=== PATIENT | male | born 1975 | race Caucasian/White ===

== ENCOUNTER 2021-01-27 08:57 | Inpatient (IN) | payer OTHER, MEDICAID ==
[~2021-01-27] VITALS: Ht 175.3 cm; Wt 94.6 kg
[2021-01-27] MEDS ORDERED: BACITRACIN 0.9 GM PACKET OINTMENT TP ONE (09:15)
[2021-01-27] MEDS ORDERED: PERTUSS(ACELL),DIPH,TET VAC/PF 0.5 ML SYRINGE IM ONE (09:15)
[2021-01-27] MEDS ORDERED: BUSP15 PO (09:21)
[2021-01-27] MEDS ORDERED: FLUO-191 PO (09:21)
[2021-01-27] MEDS ORDERED: DIVA-112 PO (09:21)
[2021-01-27] MEDS ORDERED: DiphenhydrAMINE HCL 50 MG/ML VIAL IM ONE (10:15)
[2021-01-27] MEDS ORDERED: HALOPERIDOL LACTATE 5 MG/ML VIAL IM ONE (10:15)
[2021-01-27] MEDS ORDERED: LORazepam 2 MG/ML VIAL IM ONE (10:15)
[2021-01-27 10:32] LABS: COVID AG,FIA SOURCE NASOPHARYNGEAL
[2021-01-27 10:59] LABS: AMPHET/METH SCREEN,URINE NEGATIVE (NEGATIVE); BARBITURATE SCREEN, URINE NEGATIVE (NEGATIVE); BENZODIAZEPINES SCREEN,URINE NEGATIVE (NEGATIVE); CANNABINOID SCREEN,URINE POSITIVE (NEGATIVE); COCAINE SCREEN,URINE NEGATIVE (NEGATIVE); METHADONE SCREEN, URINE NEGATIVE (NEGATIVE); OPIATE SCREEN,URINE NEGATIVE (NEGATIVE)
[2021-01-27 11:00] LABS: PHENCYCLIDINE SCREEN,URINE NEGATIVE (NEGATIVE)
[2021-01-27] MEDS ORDERED: PROMETHAZINE HCL 25 MG TABLET PO PRN (11:00)
[2021-01-27] MEDS ORDERED: OLANZapine 5 MG RAPDIS TABLET PO PRN (11:00)
[2021-01-27] MEDS ORDERED: MAGNESIUM HYDROXIDE SUSPENSION 30 ML UDCUP PO PRN (11:00)
[2021-01-27] MEDS ORDERED: ZOLPIDEM TARTRATE 10 MG TABLET PO PRN (11:00)
[2021-01-27] MEDS ORDERED: TUBERCULIN, PURIFIED PROTEIN DERIVATIVE 5 TU/0.1 ML SYRINGE ID ONE (11:00)
[2021-01-27] MEDS ORDERED: MAG HYDROX/AL HYDROX/SIMETH ES 30 ML SUSPENSION UDCUP PO PRN (11:00)
[2021-01-27] MEDS ORDERED: GuaiFENesin/D-METHORPHAN [SUGAR-FREE] 200-20MG/10 ML SYRUP UDCUP PO PRN (11:00)
[2021-01-27] MEDS ORDERED: LOPERAMIDE HCL 2 MG CAPSULE PO PRN (11:00)
[2021-01-27 11:32] LABS: BASOPHILS % (AUTO) 0.6 % (0.0-2.0); EOSINOPHILS % (AUTO) 0.3 % (1.0-6.0); HEMATOCRIT 44.8 % (41-53); HEMOGLOBIN 15.4 g/dL (13.5-17.5); LYMPHOCYTES # (AUTO) 1.9 K/uL (1.0-4.8); LYMPHOCYTES % (AUTO) 13.3 % (22.0-44.0); MEAN CORPUSCULAR HEMOGLOBIN 31.4 pg (26.0-34.0); MEAN CORPUSCULAR HGB CONC 34.3 G/dL (31.0-37.0); MEAN CORPUSCULAR VOLUME 91 fL (80-100); MONOCYTES # (AUTO) 1.2 K/uL (0.1-1.0); MONOCYTES % (AUTO) 8.6 % (2.0-9.0); NEUTROPHILS # (AUTO) 11.1 K/uL (1.8-7.7); NEUTROPHILS % (AUTO) 77.2 % (40.0-70.0); PLATELET COUNT (AUTO) 336 K/uL (150-450); RED CELL DISTRIBUTION WIDTH 13.8 % (11.5-14.5)
[2021-01-27 11:44] LABS: ANION GAP 9 mmol/L (8-16); CALCIUM, TOTAL 9.3 mg/dL (8.8-10.5); CARBON DIOXIDE 28 mmol/L (22-29); CHLORIDE 102 mmol/L (98-107); CREATININE 0.86 mg/dL (0.60-1.30); GLOMERULAR FILTR. RATE CALC > 60 mL/min (>60); GLUCOSE,RANDOM 114 mg/dL (70-110); POTASSIUM 4.5 mmol/L (3.5-5.1); SODIUM SERUM 139 mmol/L (136-145); UREA NITROGEN, BLOOD 14 mg/dL (7-18)
[2021-01-27 11:49] LABS: ALANINE AMINOTRANSFERASE 25 U/L (12-78); ALBUMIN 4.1 g/dL (3.4-5.0); ALKALINE PHOSPHATASE 83 U/L (46-116); ASPARTATE AMINOTRANSFERASE 25 U/L (15-37); BILIRUBIN,TOTAL 0.3 mg/dL (0.1-1.0); TOTAL PROTEIN, SERUM 7.6 g/dL (6.4-8.2)
[2021-01-27] MEDS: LORazepam 2 MG TABLET PO PRN (14:22)
[2021-01-27] MEDS: THIAMINE 100 MG TABLET PO SCH (17:35)
[2021-01-27 17:44] VITALS: BP 155/91
[2021-01-27] MEDS: DIVALPROEX SODIUM 500 MG ER TABLET PO SCH (20:32)
[2021-01-27] MEDS: MELATONIN 5 MG TABLET PO SCH (20:32)
[2021-01-27] MEDS ORDERED: OLANZapine 5 MG RAPDIS TABLET PO SCH (21:00)
[2021-01-28 07:24] LABS: HEMOGLOBIN A1C 5.8 % (3.8-5.6)
[2021-01-28 07:36] LABS: CHOL/HDL RATIO 5.8 (4.2-7.3)
[2021-01-28 08:00] VITALS: BP 165/99
[2021-01-28 08:54] LABS: FREE T4 (FREE THYROXINE) 1.16 ng/dL (0.76-1.46); THYROID STIMULATING HORMONE 3.29 uIU/mL (0.36-3.74)
[2021-01-28] MEDS ORDERED: NALTREXONE HCL 50 MG TABLET PO SCH (09:00)
[2021-01-28] MEDS: HydrOXYzine PAMOATE 50 MG CAPSULE PO PRN (10:22)
[2021-01-28] MEDS: THIAMINE 100 MG TABLET PO SCH ×2 (10:22→17:11)
[2021-01-28] MEDS: OMEGA-3/DHA/EPA/FISH OIL 1,000 MG CAPSULE PO SCH (10:22)
[2021-01-28] MEDS: FOLIC ACID 1 MG TABLET PO SCH (10:22)
[2021-01-28] MEDS: MULTIVITAMINS WITH MINERALS, THERAPEUTIC TABLET PO SCH (10:22)
[2021-01-28 16:49] VITALS: BP 140/92
[2021-01-28] MEDS: LORazepam 2 MG TABLET PO PRN (17:15)
[2021-01-28] MEDS: MELATONIN 5 MG TABLET PO SCH (21:11)
[2021-01-28] MEDS: DIVALPROEX SODIUM 500 MG ER TABLET PO SCH (21:11)
[2021-01-29 05:54] LABS: BASOPHILS % (AUTO) 0.7 % (0.0-2.0); EOSINOPHILS % (AUTO) 2.4 % (1.0-6.0); HEMATOCRIT 48.8 % (41-53); HEMOGLOBIN 16.5 g/dL (13.5-17.5); LYMPHOCYTES # (AUTO) 6.3 K/uL (1.0-4.8); LYMPHOCYTES % (AUTO) 33.8 % (22.0-44.0); MEAN CORPUSCULAR HEMOGLOBIN 31.2 pg (26.0-34.0); MEAN CORPUSCULAR HGB CONC 33.9 G/dL (31.0-37.0); MEAN CORPUSCULAR VOLUME 92 fL (80-100); MONOCYTES # (AUTO) 1.7 K/uL (0.1-1.0); MONOCYTES % (AUTO) 9.2 % (2.0-9.0); NEUTROPHILS # (AUTO) 10.1 K/uL (1.8-7.7); NEUTROPHILS % (AUTO) 53.9 % (40.0-70.0); PLATELET COUNT (AUTO) 373 K/uL (150-450); RED BLOOD CELL COUNT(AUTO) 5.29 MIL/uL (4.50-5.90); RED CELL DISTRIBUTION WIDTH 14.2 % (11.5-14.5)
[2021-01-29] MEDS ORDERED: LURASIDONE HCL 40 MG TABLET PO SCH (07:30)
[2021-01-29 08:00] VITALS: BP 136/83
[2021-01-29] MEDS ORDERED: BusPIRone HCL 10 MG TABLET PO SCH (09:00)
[2021-01-29] MEDS: MULTIVITAMINS WITH MINERALS, THERAPEUTIC TABLET PO SCH (09:12)
[2021-01-29] MEDS: FOLIC ACID 1 MG TABLET PO SCH (09:12)
[2021-01-29] MEDS: OMEGA-3/DHA/EPA/FISH OIL 1,000 MG CAPSULE PO SCH (09:13)
[2021-01-29] MEDS: THIAMINE 100 MG TABLET PO SCH ×2 (09:13→16:20)
[2021-01-29] MEDS: HydrOXYzine PAMOATE 50 MG CAPSULE PO PRN (09:15)
[2021-01-29] MEDS: FLUoxetine HCL 20 MG CAPSULE PO SCH (09:16)
[2021-01-29] MEDS: BusPIRone HCL 15 MG TABLET PO SCH ×2 (09:17→16:19)
[2021-01-29 16:28] VITALS: BP 147/95
[2021-01-29] MEDS ORDERED: DIVA-80 PO (18:57)
[2021-01-29] MEDS ORDERED: FLUO-191 PO (18:57)
[2021-01-29] MEDS ORDERED: BUSP15 PO (18:57)
[2021-01-29] MEDS ORDERED: LURA40TA2 PO (18:57)
[2021-01-29] MEDS ORDERED: NALT50TA PO (18:57)
[2021-01-29] MEDS ORDERED: OMEG-135 PO (18:57)
[2021-01-29] MEDS: DIVALPROEX SODIUM 500 MG ER TABLET PO SCH (20:31)
[2021-01-29] MEDS: MELATONIN 5 MG TABLET PO SCH (20:31)
[2021-01-30 04:22] VITALS: BP 160/89
[2021-01-30] MEDS: LURASIDONE HCL 60 MG TABLET PO SCH (06:56)
[2021-01-30] MEDS: MULTIVITAMINS WITH MINERALS, THERAPEUTIC TABLET PO SCH (08:07)
[2021-01-30] MEDS: OMEGA-3/DHA/EPA/FISH OIL 1,000 MG CAPSULE PO SCH (08:07)
[2021-01-30] MEDS: THIAMINE 100 MG TABLET PO SCH ×2 (08:07→16:34)
[2021-01-30] MEDS: HydrOXYzine PAMOATE 50 MG CAPSULE PO PRN (08:07)
[2021-01-30] MEDS: BusPIRone HCL 15 MG TABLET PO SCH ×2 (08:07→16:34)
[2021-01-30] MEDS: FLUoxetine HCL 20 MG CAPSULE PO SCH (08:07)
[2021-01-30] MEDS: FOLIC ACID 1 MG TABLET PO SCH (08:07)
[2021-01-30] MEDS: NALTREXONE HCL 50 MG TABLET PO SCH (08:08)
[2021-01-30 08:47] VITALS: BP 126/85
[2021-01-30 16:13] VITALS: BP 139/73
[2021-01-30] MEDS: ACETAMINOPHEN 325 MG TABLET PO PRN (19:34)
[2021-01-30 19:35] VITALS: BP 134/75
[2021-01-30] MEDS: DIVALPROEX SODIUM 500 MG ER TABLET PO SCH (20:13)
[2021-01-30] MEDS: MELATONIN 5 MG TABLET PO SCH (20:13)
[2021-01-30 20:35] VITALS: BP 130/80
[2021-01-31 00:27] VITALS: BP 136/71
[2021-01-31] MEDS: ACETAMINOPHEN 325 MG TABLET PO PRN (00:27)
[2021-01-31] MEDS: LURASIDONE HCL 60 MG TABLET PO SCH (07:30)
[2021-01-31 08:40] VITALS: BP 145/93
[2021-01-31] MEDS: OMEGA-3/DHA/EPA/FISH OIL 1,000 MG CAPSULE PO SCH (09:06)
[2021-01-31] MEDS: FLUoxetine HCL 20 MG CAPSULE PO SCH (09:06)
[2021-01-31] MEDS: NALTREXONE HCL 50 MG TABLET PO SCH (09:06)
[2021-01-31] MEDS: MULTIVITAMINS WITH MINERALS, THERAPEUTIC TABLET PO SCH (09:06)
[2021-01-31] MEDS: FOLIC ACID 1 MG TABLET PO SCH (09:07)
[2021-01-31] MEDS: THIAMINE 100 MG TABLET PO SCH ×2 (09:07→16:32)
[2021-01-31] MEDS: BusPIRone HCL 15 MG TABLET PO SCH ×2 (09:07→16:32)
[2021-01-31] MEDS: LURASIDONE HCL 20 MG TABLET PO PRN (09:07)
[2021-01-31 16:13] VITALS: BP 148/98
[2021-01-31] MEDS: MELATONIN 5 MG TABLET PO SCH (20:16)
[2021-01-31] MEDS: DIVALPROEX SODIUM 500 MG ER TABLET PO SCH (20:16)
[2021-02-01 01:38] VITALS: BP 135/73
[2021-02-01] MEDS: ACETAMINOPHEN 325 MG TABLET PO PRN ×2 (01:38→17:55)
[2021-02-01] MEDS: LURASIDONE HCL 60 MG TABLET PO SCH (06:46)
[2021-02-01 08:00] VITALS: BP 130/90
[2021-02-01] MEDS: THIAMINE 100 MG TABLET PO SCH ×2 (08:43→16:33)
[2021-02-01] MEDS: OMEGA-3/DHA/EPA/FISH OIL 1,000 MG CAPSULE PO SCH (08:44)
[2021-02-01] MEDS: MULTIVITAMINS WITH MINERALS, THERAPEUTIC TABLET PO SCH (08:44)
[2021-02-01] MEDS: FOLIC ACID 1 MG TABLET PO SCH (08:44)
[2021-02-01] MEDS: BusPIRone HCL 15 MG TABLET PO SCH ×2 (08:44→16:33)
[2021-02-01] MEDS: NALTREXONE HCL 50 MG TABLET PO SCH (08:44)
[2021-02-01] MEDS: FLUoxetine HCL 20 MG CAPSULE PO SCH (08:44)
[2021-02-01 14:58] LABS: COVID AG,FIA SOURCE NASOPHARYNGEAL
[2021-02-01 16:00] VITALS: BP 133/89
[2021-02-01 17:50] VITALS: BP 141/95
[2021-02-01] MEDS: DIVALPROEX SODIUM 500 MG ER TABLET PO SCH (20:08)
[2021-02-01] MEDS: MELATONIN 5 MG TABLET PO SCH (20:08)
[2021-02-02] MEDS: LURASIDONE HCL 80 MG TABLET PO SCH (06:41)
[2021-02-02 08:00] VITALS: BP 149/89
[2021-02-02] MEDS: BusPIRone HCL 15 MG TABLET PO SCH ×2 (08:19→16:43)
[2021-02-02] MEDS: FLUoxetine HCL 20 MG CAPSULE PO SCH (08:19)
[2021-02-02] MEDS: FOLIC ACID 1 MG TABLET PO SCH (08:19)
[2021-02-02] MEDS: OMEGA-3/DHA/EPA/FISH OIL 1,000 MG CAPSULE PO SCH (08:20)
[2021-02-02] MEDS: MULTIVITAMINS WITH MINERALS, THERAPEUTIC TABLET PO SCH (08:20)
[2021-02-02] MEDS: THIAMINE 100 MG TABLET PO SCH ×2 (08:20→16:42)
[2021-02-02] MEDS: NALTREXONE HCL 50 MG TABLET PO SCH (08:23)
[2021-02-02] MEDS: BACITRACIN 28 GM OINTMENT TP SCH (13:13)
[2021-02-02 16:00] VITALS: BP 127/83
[2021-02-02] MEDS: MELATONIN 5 MG TABLET PO SCH (21:42)
[2021-02-02] MEDS: DIVALPROEX SODIUM 500 MG ER TABLET PO SCH (21:42)
[2021-02-03] MEDS: LURASIDONE HCL 80 MG TABLET PO SCH (07:04)
[2021-02-03 08:41] VITALS: BP 151/100
[2021-02-03] MEDS: THIAMINE 100 MG TABLET PO SCH ×2 (09:48→16:13)
[2021-02-03] MEDS: BusPIRone HCL 15 MG TABLET PO SCH ×2 (09:48→16:13)
[2021-02-03] MEDS: FOLIC ACID 1 MG TABLET PO SCH (09:48)
[2021-02-03] MEDS: NICOTINE 14 MG/24 HOUR PATCH TD PRN (09:48)
[2021-02-03] MEDS: MULTIVITAMINS WITH MINERALS, THERAPEUTIC TABLET PO SCH (09:48)
[2021-02-03] MEDS: OMEGA-3/DHA/EPA/FISH OIL 1,000 MG CAPSULE PO SCH (09:48)
[2021-02-03] MEDS: FLUoxetine HCL 20 MG CAPSULE PO SCH (09:49)
[2021-02-03] MEDS: NALTREXONE HCL 50 MG TABLET PO SCH (09:49)
[2021-02-03] MEDS: BACITRACIN 28 GM OINTMENT TP SCH (09:50)
[2021-02-03 16:27] VITALS: BP 150/97
[2021-02-03] MEDS: DIVALPROEX SODIUM 500 MG ER TABLET PO SCH (20:32)
[2021-02-03] MEDS: MELATONIN 5 MG TABLET PO SCH (20:32)
[2021-02-04 01:06] VITALS: BP 144/94
[2021-02-04] MEDS: LURASIDONE HCL 80 MG TABLET PO SCH (07:01)
[2021-02-04] MEDS: MULTIVITAMINS WITH MINERALS, THERAPEUTIC TABLET PO SCH (07:59)
[2021-02-04 08:00] VITALS: BP 153/85
[2021-02-04] MEDS: THIAMINE 100 MG TABLET PO SCH ×2 (08:00→16:23)
[2021-02-04] MEDS: FLUoxetine HCL 20 MG CAPSULE PO SCH (08:00)
[2021-02-04] MEDS: NALTREXONE HCL 50 MG TABLET PO SCH (08:00)
[2021-02-04] MEDS: OMEGA-3/DHA/EPA/FISH OIL 1,000 MG CAPSULE PO SCH (08:00)
[2021-02-04] MEDS: FOLIC ACID 1 MG TABLET PO SCH (08:00)
[2021-02-04] MEDS: BusPIRone HCL 15 MG TABLET PO SCH ×2 (08:00→16:23)
[2021-02-04] MEDS: NICOTINE 14 MG/24 HOUR PATCH TD PRN (08:01)
[2021-02-04] MEDS: BACITRACIN 28 GM OINTMENT TP SCH (08:01)
[2021-02-04 16:44] VITALS: BP 143/95
[2021-02-04] MEDS: DIVALPROEX SODIUM 500 MG ER TABLET PO SCH (20:46)
[2021-02-04] MEDS: MELATONIN 5 MG TABLET PO SCH (20:46)
[2021-02-05] MEDS: LURASIDONE HCL 80 MG TABLET PO SCH (06:50)
[2021-02-05 08:00] VITALS: BP 133/89
[2021-02-05] MEDS: FOLIC ACID 1 MG TABLET PO SCH (08:01)
[2021-02-05] MEDS: BusPIRone HCL 15 MG TABLET PO SCH ×2 (08:01→16:10)
[2021-02-05] MEDS: FLUoxetine HCL 20 MG CAPSULE PO SCH (08:01)
[2021-02-05] MEDS: THIAMINE 100 MG TABLET PO SCH ×2 (08:01→16:10)
[2021-02-05] MEDS: MULTIVITAMINS WITH MINERALS, THERAPEUTIC TABLET PO SCH (08:01)
[2021-02-05] MEDS: OMEGA-3/DHA/EPA/FISH OIL 1,000 MG CAPSULE PO SCH (08:01)
[2021-02-05] MEDS: NALTREXONE HCL 50 MG TABLET PO SCH (09:00)
[2021-02-05] MEDS: NICOTINE 14 MG/24 HOUR PATCH TD PRN (11:39)
[2021-02-05] MEDS: BACITRACIN 28 GM OINTMENT TP SCH (11:39)
[2021-02-05 16:18] VITALS: BP 134/81
[2021-02-05] MEDS: MELATONIN 5 MG TABLET PO SCH (20:35)
[2021-02-05] MEDS: DIVALPROEX SODIUM 500 MG ER TABLET PO SCH (20:35)
[2021-02-06] MEDS: ACETAMINOPHEN 325 MG TABLET PO PRN ×2 (02:05→17:47)
[2021-02-06 02:09] VITALS: BP 129/91
[2021-02-06] MEDS: LURASIDONE HCL 80 MG TABLET PO SCH (06:50)
[2021-02-06] MEDS: MULTIVITAMINS WITH MINERALS, THERAPEUTIC TABLET PO SCH (07:58)
[2021-02-06] MEDS: FLUoxetine HCL 20 MG CAPSULE PO SCH (07:58)
[2021-02-06] MEDS: BusPIRone HCL 15 MG TABLET PO SCH ×2 (07:58→16:32)
[2021-02-06] MEDS: THIAMINE 100 MG TABLET PO SCH (07:58)
[2021-02-06] MEDS: OMEGA-3/DHA/EPA/FISH OIL 1,000 MG CAPSULE PO SCH (07:58)
[2021-02-06] MEDS: FOLIC ACID 1 MG TABLET PO SCH (07:58)
[2021-02-06] MEDS: NICOTINE 14 MG/24 HOUR PATCH TD PRN (07:59)
[2021-02-06 08:00] VITALS: BP 137/91
[2021-02-06 08:01] LABS: APPEARANCE,URINE CLEAR (CLEAR); BILIRUBIN,URINE NEGATIVE (NEGATIVE); GLUCOSE, URINE (UA) NEGATIVE (NEGATIVE); KETONES,URINE TRACE mg/dL (NEGATIVE); LEUKOCYTE ESTERASE ,URINE NEGATIVE (NEGATIVE); NITRATE,URINE NEGATIVE (NEGATIVE); OCCULT BLOOD,URINE NEGATIVE (NEGATIVE); PH,URINE 6.5 (5.0-8.0); PROTEIN,URINE NEGATIVE (NEGATIVE); UROBILINOGEN,URINE 0.2 mg/dL (<=1.0)
[2021-02-06] MEDS: NALTREXONE HCL 50 MG TABLET PO SCH (09:00)
[2021-02-06] MEDS: BACITRACIN 28 GM OINTMENT TP SCH (09:00)
[2021-02-06] MEDS: CEPHALEXIN MONOHYDRATE 500 MG CAPSULE PO SCH ×3 (13:13→20:18)
[2021-02-06 16:34] VITALS: BP 123/83
[2021-02-06 18:48] VITALS: BP 129/89
[2021-02-06] MEDS: MELATONIN 5 MG TABLET PO SCH (20:18)
[2021-02-06] MEDS: DIVALPROEX SODIUM 500 MG ER TABLET PO SCH (20:18)
[2021-02-07 05:55] LABS: BASOPHILS % (AUTO) 0.8 % (0.0-2.0); EOSINOPHILS % (AUTO) 2.9 % (1.0-6.0); HEMATOCRIT 42.1 % (41-53); HEMOGLOBIN 14.6 g/dL (13.5-17.5); LYMPHOCYTES # (AUTO) 5.3 K/uL (1.0-4.8); LYMPHOCYTES % (AUTO) 38.5 % (22.0-44.0); MEAN CORPUSCULAR HEMOGLOBIN 31.4 pg (26.0-34.0); MEAN CORPUSCULAR HGB CONC 34.6 G/dL (31.0-37.0); MEAN CORPUSCULAR VOLUME 91 fL (80-100); MONOCYTES # (AUTO) 1.1 K/uL (0.1-1.0); NEUTROPHILS # (AUTO) 6.8 K/uL (1.8-7.7); NEUTROPHILS % (AUTO) 49.8 % (40.0-70.0); PLATELET COUNT (AUTO) 324 K/uL (150-450); RED BLOOD CELL COUNT(AUTO) 4.64 MIL/uL (4.50-5.90); RED CELL DISTRIBUTION WIDTH 13.7 % (11.5-14.5)
[2021-02-07] MEDS: LURASIDONE HCL 80 MG TABLET PO SCH (06:58)
[2021-02-07 08:00] VITALS: BP 139/85
[2021-02-07] MEDS: CEPHALEXIN MONOHYDRATE 500 MG CAPSULE PO SCH ×4 (08:17→20:17)
[2021-02-07] MEDS: BusPIRone HCL 15 MG TABLET PO SCH ×2 (08:17→15:27)
[2021-02-07] MEDS: OMEGA-3/DHA/EPA/FISH OIL 1,000 MG CAPSULE PO SCH (08:17)
[2021-02-07] MEDS: NALTREXONE HCL 50 MG TABLET PO SCH (08:17)
[2021-02-07] MEDS: MULTIVITAMINS WITH MINERALS, THERAPEUTIC TABLET PO SCH (08:17)
[2021-02-07] MEDS: FLUoxetine HCL 20 MG CAPSULE PO SCH (08:17)
[2021-02-07] MEDS: BACITRACIN 28 GM OINTMENT TP SCH (09:00)
[2021-02-07] MEDS: NICOTINE 14 MG/24 HOUR PATCH TD PRN (15:26)
[2021-02-07] MEDS: LURASIDONE HCL 20 MG TABLET PO PRN (15:26)
[2021-02-07 16:05] VITALS: BP 136/72
[2021-02-07] MEDS: DIVALPROEX SODIUM 500 MG ER TABLET PO SCH (20:16)
[2021-02-07] MEDS: MELATONIN 5 MG TABLET PO SCH (20:16)
[2021-02-08] MEDS: LURASIDONE HCL 80 MG TABLET PO SCH (06:34)
[2021-02-08] MEDS: MULTIVITAMINS WITH MINERALS, THERAPEUTIC TABLET PO SCH (08:40)
[2021-02-08] MEDS: OMEGA-3/DHA/EPA/FISH OIL 1,000 MG CAPSULE PO SCH (08:40)
[2021-02-08] MEDS: FLUoxetine HCL 20 MG CAPSULE PO SCH (08:42)
[2021-02-08] MEDS: BusPIRone HCL 15 MG TABLET PO SCH ×2 (08:43→16:23)
[2021-02-08] MEDS: BACITRACIN 28 GM OINTMENT TP SCH (08:43)
[2021-02-08] MEDS: NALTREXONE HCL 50 MG TABLET PO SCH (08:43)
[2021-02-08] MEDS: CEPHALEXIN MONOHYDRATE 500 MG CAPSULE PO SCH ×4 (08:43→20:13)
[2021-02-08 09:28] VITALS: BP 127/84
[2021-02-08 14:50] LABS: COVID AG,FIA SOURCE NASOPHARYNGEAL
[2021-02-08 16:25] VITALS: BP 146/86
[2021-02-08] MEDS: MELATONIN 5 MG TABLET PO SCH (20:13)
[2021-02-08] MEDS: DIVALPROEX SODIUM 500 MG ER TABLET PO SCH (20:13)
[2021-02-09] MEDS: LURASIDONE HCL 80 MG TABLET PO SCH (06:37)
[2021-02-09 08:32] VITALS: BP 124/88
[2021-02-09] MEDS: CEPHALEXIN MONOHYDRATE 500 MG CAPSULE PO SCH (09:03)
[2021-02-09] MEDS: ACETAMINOPHEN 325 MG TABLET PO PRN (09:03)
[2021-02-09] MEDS: BACITRACIN 28 GM OINTMENT TP SCH (09:03)
[2021-02-09] MEDS: MULTIVITAMINS WITH MINERALS, THERAPEUTIC TABLET PO SCH (09:03)
[2021-02-09] MEDS: NALTREXONE HCL 50 MG TABLET PO SCH (09:03)
[2021-02-09] MEDS: BusPIRone HCL 15 MG TABLET PO SCH ×2 (09:03→16:23)
[2021-02-09] MEDS: OMEGA-3/DHA/EPA/FISH OIL 1,000 MG CAPSULE PO SCH (09:03)
[2021-02-09] MEDS: FLUoxetine HCL 20 MG CAPSULE PO SCH (09:03)
[2021-02-09 16:00] VITALS: BP 120/85
[2021-02-09] MEDS: NICOTINE 14 MG/24 HOUR PATCH TD PRN (17:46)
[2021-02-09] MEDS: DIVALPROEX SODIUM 500 MG ER TABLET PO SCH (20:33)
[2021-02-09] MEDS: MELATONIN 5 MG TABLET PO SCH (21:10)
[2021-02-10] MEDS: ACETAMINOPHEN 325 MG TABLET PO PRN (02:54)
[2021-02-10 02:55] VITALS: BP 120/81
[2021-02-10 05:48] LABS: BASOPHILS % (AUTO) 0.9 % (0.0-2.0); EOSINOPHILS % (AUTO) 2.3 % (1.0-6.0); HEMATOCRIT 43.3 % (41-53); HEMOGLOBIN 14.8 g/dL (13.5-17.5); LYMPHOCYTES # (AUTO) 4.8 K/uL (1.0-4.8); MEAN CORPUSCULAR HEMOGLOBIN 31.3 pg (26.0-34.0); MEAN CORPUSCULAR HGB CONC 34.1 G/dL (31.0-37.0); MEAN CORPUSCULAR VOLUME 92 fL (80-100); MONOCYTES % (AUTO) 8.3 % (2.0-9.0); NEUTROPHILS # (AUTO) 5.8 K/uL (1.8-7.7); NEUTROPHILS % (AUTO) 48.5 % (40.0-70.0); PLATELET COUNT (AUTO) 323 K/uL (150-450); RED BLOOD CELL COUNT(AUTO) 4.72 MIL/uL (4.50-5.90); RED CELL DISTRIBUTION WIDTH 13.4 % (11.5-14.5)
[2021-02-10] MEDS: LURASIDONE HCL 80 MG TABLET PO SCH (06:36)
[2021-02-10] MEDS: OMEGA-3/DHA/EPA/FISH OIL 1,000 MG CAPSULE PO SCH (08:08)
[2021-02-10] MEDS: BACITRACIN 28 GM OINTMENT TP SCH (08:09)
[2021-02-10] MEDS: MULTIVITAMINS WITH MINERALS, THERAPEUTIC TABLET PO SCH (08:09)
[2021-02-10] MEDS: NALTREXONE HCL 50 MG TABLET PO SCH (08:09)
[2021-02-10] MEDS: FLUoxetine HCL 20 MG CAPSULE PO SCH (08:09)
[2021-02-10] MEDS: BusPIRone HCL 15 MG TABLET PO SCH ×2 (08:09→16:04)
[2021-02-10] MEDS ORDERED: LURA80TA2 PO (09:18)
[2021-02-10] MEDS ORDERED: MELA5TAB3 PO (09:18)
[2021-02-10] MEDS ORDERED: NALT50TA PO (09:18)
[2021-02-10] MEDS ORDERED: DIVA-80 PO (09:18)
[2021-02-10 10:33] VITALS: BP 127/91
[2021-02-10 16:09] VITALS: BP 128/83
[2021-02-10] MEDS: NICOTINE 14 MG/24 HOUR PATCH TD PRN (17:35)
[2021-02-10] MEDS: MELATONIN 5 MG TABLET PO SCH (20:41)
[2021-02-10] MEDS: DIVALPROEX SODIUM 500 MG ER TABLET PO SCH (20:41)
[2021-02-11] MEDS: LURASIDONE HCL 80 MG TABLET PO SCH (07:03)
[2021-02-11 08:00] VITALS: BP 116/72
[2021-02-11] MEDS: MULTIVITAMINS WITH MINERALS, THERAPEUTIC TABLET PO SCH (10:56)
[2021-02-11] MEDS: BACITRACIN 28 GM OINTMENT TP SCH (10:56)
[2021-02-11] MEDS: BusPIRone HCL 15 MG TABLET PO SCH ×2 (10:56→17:03)
[2021-02-11] MEDS: OMEGA-3/DHA/EPA/FISH OIL 1,000 MG CAPSULE PO SCH (10:56)
[2021-02-11] MEDS: FLUoxetine HCL 20 MG CAPSULE PO SCH (10:56)
[2021-02-11] MEDS: NALTREXONE HCL 50 MG TABLET PO SCH (10:56)
[2021-02-11 16:29] VITALS: BP 128/84
[2021-02-11] MEDS: NICOTINE 14 MG/24 HOUR PATCH TD PRN (18:08)
[2021-02-11] MEDS: MELATONIN 5 MG TABLET PO SCH (20:14)
[2021-02-11] MEDS: DIVALPROEX SODIUM 500 MG ER TABLET PO SCH (20:14)
[2021-02-12] MEDS: LURASIDONE HCL 80 MG TABLET PO SCH (06:55)
[2021-02-12 08:00] VITALS: BP 135/91
[2021-02-12] MEDS: OMEGA-3/DHA/EPA/FISH OIL 1,000 MG CAPSULE PO SCH (09:40)
[2021-02-12] MEDS: MULTIVITAMINS WITH MINERALS, THERAPEUTIC TABLET PO SCH (09:40)
[2021-02-12] MEDS: BACITRACIN 28 GM OINTMENT TP SCH (09:40)
[2021-02-12] MEDS: NALTREXONE HCL 50 MG TABLET PO SCH (09:40)
[2021-02-12] MEDS: BusPIRone HCL 15 MG TABLET PO SCH ×2 (09:40→16:53)
[2021-02-12] MEDS: FLUoxetine HCL 20 MG CAPSULE PO SCH (09:40)
[2021-02-12] MEDS: ACETAMINOPHEN 325 MG TABLET PO PRN (09:45)
[2021-02-12 16:16] VITALS: BP 134/83
[2021-02-12] MEDS: DIVALPROEX SODIUM 500 MG ER TABLET PO SCH (20:02)
[2021-02-12] MEDS: MELATONIN 5 MG TABLET PO SCH (20:02)
[2021-02-13] MEDS: LURASIDONE HCL 80 MG TABLET PO SCH (06:59)
[2021-02-13 08:42] VITALS: BP 118/64
[2021-02-13] MEDS: OMEGA-3/DHA/EPA/FISH OIL 1,000 MG CAPSULE PO SCH (09:01)
[2021-02-13] MEDS: MULTIVITAMINS WITH MINERALS, THERAPEUTIC TABLET PO SCH (09:01)
[2021-02-13] MEDS: NALTREXONE HCL 50 MG TABLET PO SCH (09:01)
[2021-02-13] MEDS: BACITRACIN 28 GM OINTMENT TP SCH (09:01)
[2021-02-13] MEDS: BusPIRone HCL 15 MG TABLET PO SCH ×2 (09:01→16:33)
[2021-02-13] MEDS: FLUoxetine HCL 20 MG CAPSULE PO SCH (09:01)
[2021-02-13 16:07] VITALS: BP 107/75
[2021-02-13] MEDS: NICOTINE 14 MG/24 HOUR PATCH TD PRN (17:35)
[2021-02-13] MEDS: DIVALPROEX SODIUM 500 MG ER TABLET PO SCH (20:51)
[2021-02-13] MEDS: MELATONIN 5 MG TABLET PO SCH (20:52)
[2021-02-14] MEDS: LURASIDONE HCL 80 MG TABLET PO SCH (06:35)
[2021-02-14 08:00] VITALS: BP 119/81
[2021-02-14] MEDS: FLUoxetine HCL 20 MG CAPSULE PO SCH (08:51)
[2021-02-14] MEDS: NALTREXONE HCL 50 MG TABLET PO SCH (08:51)
[2021-02-14] MEDS: MULTIVITAMINS WITH MINERALS, THERAPEUTIC TABLET PO SCH (08:51)
[2021-02-14] MEDS: OMEGA-3/DHA/EPA/FISH OIL 1,000 MG CAPSULE PO SCH (08:51)
[2021-02-14] MEDS: BusPIRone HCL 15 MG TABLET PO SCH ×2 (08:51→16:02)
[2021-02-14] MEDS: BACITRACIN 28 GM OINTMENT TP SCH (08:52)
[2021-02-14] MEDS: ACETAMINOPHEN 325 MG TABLET PO PRN (10:28)
[2021-02-14 10:34] VITALS: BP 112/78
[2021-02-14 16:00] VITALS: BP 113/76
[2021-02-14] MEDS: NICOTINE 14 MG/24 HOUR PATCH TD PRN (16:03)
[2021-02-14] MEDS: MELATONIN 5 MG TABLET PO SCH (20:13)
[2021-02-14] MEDS: DIVALPROEX SODIUM 500 MG ER TABLET PO SCH (20:13)
[2021-02-15] MEDS: LURASIDONE HCL 80 MG TABLET PO SCH (06:41)
[2021-02-15 08:00] VITALS: BP 124/87
[2021-02-15] MEDS: FLUoxetine HCL 20 MG CAPSULE PO SCH (08:16)
[2021-02-15] MEDS: BusPIRone HCL 15 MG TABLET PO SCH ×2 (08:16→16:27)
[2021-02-15] MEDS: MULTIVITAMINS WITH MINERALS, THERAPEUTIC TABLET PO SCH (08:16)
[2021-02-15] MEDS: NALTREXONE HCL 50 MG TABLET PO SCH (08:16)
[2021-02-15] MEDS: OMEGA-3/DHA/EPA/FISH OIL 1,000 MG CAPSULE PO SCH (08:16)
[2021-02-15] MEDS: BACITRACIN 28 GM OINTMENT TP SCH (08:17)
[2021-02-15 16:25] VITALS: BP 108/75
[2021-02-15] MEDS: NICOTINE 14 MG/24 HOUR PATCH TD PRN (16:28)
[2021-02-15] MEDS: ACETAMINOPHEN 325 MG TABLET PO PRN (16:31)
[2021-02-15] MEDS: DIVALPROEX SODIUM 500 MG ER TABLET PO SCH (20:42)
[2021-02-15] MEDS: MELATONIN 5 MG TABLET PO SCH (20:42)
[2021-02-16] MEDS: LURASIDONE HCL 80 MG TABLET PO SCH (06:44)
[2021-02-16] MEDS: NALTREXONE HCL 50 MG TABLET PO SCH (07:53)
[2021-02-16] MEDS: MULTIVITAMINS WITH MINERALS, THERAPEUTIC TABLET PO SCH (07:53)
[2021-02-16] MEDS: BusPIRone HCL 15 MG TABLET PO SCH ×2 (07:53→16:15)
[2021-02-16] MEDS: OMEGA-3/DHA/EPA/FISH OIL 1,000 MG CAPSULE PO SCH (07:53)
[2021-02-16] MEDS: BACITRACIN 28 GM OINTMENT TP SCH (07:54)
[2021-02-16] MEDS: FLUoxetine HCL 20 MG CAPSULE PO SCH (07:54)
[2021-02-16 08:00] VITALS: BP 145/88
[2021-02-16] MEDS: NICOTINE 14 MG/24 HOUR PATCH TD PRN (16:01)
[2021-02-16 16:06] LABS: COVID AG,FIA SOURCE NASAL SWAB
[2021-02-16 16:25] VITALS: BP 111/74
[2021-02-16] MEDS: DIVALPROEX SODIUM 500 MG ER TABLET PO SCH (20:37)
[2021-02-16] MEDS: MELATONIN 5 MG TABLET PO SCH (21:02)
[2021-02-17] MEDS: LURASIDONE HCL 80 MG TABLET PO SCH (06:59)
[2021-02-17 08:35] VITALS: BP 136/79
[2021-02-17] MEDS: BusPIRone HCL 15 MG TABLET PO SCH ×2 (10:25→16:18)
[2021-02-17] MEDS: NALTREXONE HCL 50 MG TABLET PO SCH (10:25)
[2021-02-17] MEDS: MULTIVITAMINS WITH MINERALS, THERAPEUTIC TABLET PO SCH (10:26)
[2021-02-17] MEDS: OMEGA-3/DHA/EPA/FISH OIL 1,000 MG CAPSULE PO SCH (10:26)
[2021-02-17] MEDS: FLUoxetine HCL 20 MG CAPSULE PO SCH (10:26)
[2021-02-17] MEDS: BACITRACIN 28 GM OINTMENT TP SCH (10:26)
[2021-02-17] MEDS: ACETAMINOPHEN 325 MG TABLET PO PRN (16:18)
[2021-02-17] MEDS: NICOTINE 14 MG/24 HOUR PATCH TD PRN (16:19)
[2021-02-17 16:28] VITALS: BP 107/74
[2021-02-17] MEDS: MELATONIN 5 MG TABLET PO SCH (20:18)
[2021-02-17] MEDS: DIVALPROEX SODIUM 500 MG ER TABLET PO SCH (20:18)
[2021-02-18] MEDS: LURASIDONE HCL 80 MG TABLET PO SCH (07:08)
[2021-02-18] MEDS: NALTREXONE HCL 50 MG TABLET PO SCH (07:52)
[2021-02-18] MEDS: MULTIVITAMINS WITH MINERALS, THERAPEUTIC TABLET PO SCH (07:52)
[2021-02-18] MEDS: OMEGA-3/DHA/EPA/FISH OIL 1,000 MG CAPSULE PO SCH (07:52)
[2021-02-18] MEDS: BusPIRone HCL 15 MG TABLET PO SCH ×2 (07:53→16:46)
[2021-02-18] MEDS: FLUoxetine HCL 20 MG CAPSULE PO SCH (07:53)
[2021-02-18] MEDS: BACITRACIN 28 GM OINTMENT TP SCH (07:54)
[2021-02-18 15:33] VITALS: BP 119/76
[2021-02-18 16:07] VITALS: BP 119/76
[2021-02-18] MEDS: NICOTINE 14 MG/24 HOUR PATCH TD PRN (17:50)
[2021-02-18] MEDS: MELATONIN 5 MG TABLET PO SCH (20:27)
[2021-02-18] MEDS: DIVALPROEX SODIUM 500 MG ER TABLET PO SCH (20:27)
[2021-02-19] MEDS: ACETAMINOPHEN 325 MG TABLET PO PRN ×2 (06:28→17:49)
[2021-02-19] MEDS: LURASIDONE HCL 80 MG TABLET PO SCH (06:56)
[2021-02-19 08:00] VITALS: BP 97/60
[2021-02-19] MEDS: NALTREXONE HCL 50 MG TABLET PO SCH (08:46)
[2021-02-19] MEDS: BusPIRone HCL 15 MG TABLET PO SCH ×2 (08:46→16:22)
[2021-02-19] MEDS: FLUoxetine HCL 20 MG CAPSULE PO SCH (08:46)
[2021-02-19] MEDS: MULTIVITAMINS WITH MINERALS, THERAPEUTIC TABLET PO SCH (08:46)
[2021-02-19] MEDS: OMEGA-3/DHA/EPA/FISH OIL 1,000 MG CAPSULE PO SCH (08:46)
[2021-02-19] MEDS: BACITRACIN 28 GM OINTMENT TP SCH (09:00)
[2021-02-19 16:28] VITALS: BP 115/77
[2021-02-19] MEDS: NICOTINE 14 MG/24 HOUR PATCH TD PRN (16:56)
[2021-02-19 17:50] VITALS: BP 109/74
[2021-02-19] MEDS: MELATONIN 5 MG TABLET PO SCH (20:12)
[2021-02-19] MEDS: DIVALPROEX SODIUM 500 MG ER TABLET PO SCH (20:12)
[2021-02-20] MEDS: LURASIDONE HCL 80 MG TABLET PO SCH (07:01)
[2021-02-20 08:00] VITALS: BP 127/88
[2021-02-20] MEDS: OMEGA-3/DHA/EPA/FISH OIL 1,000 MG CAPSULE PO SCH (08:13)
[2021-02-20] MEDS: BusPIRone HCL 15 MG TABLET PO SCH ×2 (08:13→16:09)
[2021-02-20] MEDS: MULTIVITAMINS WITH MINERALS, THERAPEUTIC TABLET PO SCH (08:13)
[2021-02-20] MEDS: FLUoxetine HCL 20 MG CAPSULE PO SCH (08:13)
[2021-02-20] MEDS: NALTREXONE HCL 50 MG TABLET PO SCH (08:13)
[2021-02-20] MEDS: BACITRACIN 28 GM OINTMENT TP SCH (12:35)
[2021-02-20 16:26] VITALS: BP 112/80
[2021-02-20] MEDS: NICOTINE 14 MG/24 HOUR PATCH TD PRN (17:43)
[2021-02-20 17:45] VITALS: BP 125/88
[2021-02-20] MEDS: ACETAMINOPHEN 325 MG TABLET PO PRN (17:46)
[2021-02-20 18:45] VITALS: BP 120/80
[2021-02-20] MEDS: MELATONIN 5 MG TABLET PO SCH (20:10)
[2021-02-20] MEDS: DIVALPROEX SODIUM 500 MG ER TABLET PO SCH (20:10)
[2021-02-21] MEDS: LURASIDONE HCL 80 MG TABLET PO SCH (07:03)
[2021-02-21] MEDS: BusPIRone HCL 15 MG TABLET PO SCH ×2 (08:07→16:47)
[2021-02-21] MEDS: MULTIVITAMINS WITH MINERALS, THERAPEUTIC TABLET PO SCH (08:07)
[2021-02-21] MEDS: OMEGA-3/DHA/EPA/FISH OIL 1,000 MG CAPSULE PO SCH (08:07)
[2021-02-21] MEDS: NALTREXONE HCL 50 MG TABLET PO SCH (08:07)
[2021-02-21] MEDS: FLUoxetine HCL 20 MG CAPSULE PO SCH (08:07)
[2021-02-21] MEDS: BACITRACIN 28 GM OINTMENT TP SCH (08:08)
[2021-02-21 08:25] VITALS: BP 113/77
[2021-02-21 16:00] VITALS: BP 117/71
[2021-02-21] MEDS: NICOTINE 14 MG/24 HOUR PATCH TD PRN (17:43)
[2021-02-21] MEDS: MELATONIN 5 MG TABLET PO SCH (20:25)
[2021-02-21] MEDS: DIVALPROEX SODIUM 500 MG ER TABLET PO SCH (20:26)
[2021-02-22] MEDS: LURASIDONE HCL 80 MG TABLET PO SCH (06:32)
[2021-02-22] MEDS: NALTREXONE HCL 50 MG TABLET PO SCH (09:20)
[2021-02-22] MEDS: BusPIRone HCL 15 MG TABLET PO SCH ×2 (09:23→16:23)
[2021-02-22] MEDS: BACITRACIN 28 GM OINTMENT TP SCH (09:23)
[2021-02-22] MEDS: OMEGA-3/DHA/EPA/FISH OIL 1,000 MG CAPSULE PO SCH (09:23)
[2021-02-22] MEDS: MULTIVITAMINS WITH MINERALS, THERAPEUTIC TABLET PO SCH (09:23)
[2021-02-22] MEDS: FLUoxetine HCL 20 MG CAPSULE PO SCH (09:23)
[2021-02-22 09:29] VITALS: BP 117/80
[2021-02-22] MEDS: NICOTINE 14 MG/24 HOUR PATCH TD PRN (16:37)
[2021-02-22 16:38] VITALS: BP 100/71
[2021-02-22] MEDS: DIVALPROEX SODIUM 500 MG ER TABLET PO SCH (20:26)
[2021-02-22] MEDS: MELATONIN 5 MG TABLET PO SCH (20:26)
[2021-02-23] MEDS: LURASIDONE HCL 80 MG TABLET PO SCH (06:55)
[2021-02-23 09:27] VITALS: BP 113/81
[2021-02-23] MEDS: OMEGA-3/DHA/EPA/FISH OIL 1,000 MG CAPSULE PO SCH (11:41)
[2021-02-23] MEDS: NALTREXONE HCL 50 MG TABLET PO SCH (11:42)
[2021-02-23] MEDS: MULTIVITAMINS WITH MINERALS, THERAPEUTIC TABLET PO SCH (11:42)
[2021-02-23] MEDS: FLUoxetine HCL 20 MG CAPSULE PO SCH (11:42)
[2021-02-23] MEDS: BusPIRone HCL 15 MG TABLET PO SCH ×2 (11:42→16:21)
[2021-02-23] MEDS: BACITRACIN 28 GM OINTMENT TP SCH (11:43)
[2021-02-23 14:45] LABS: COVID AG,FIA SOURCE NASOPHARYNGEAL
[2021-02-23 16:50] VITALS: BP 108/76
[2021-02-23] MEDS: NICOTINE 14 MG/24 HOUR PATCH TD PRN (17:39)
[2021-02-23] MEDS: ACETAMINOPHEN 325 MG TABLET PO PRN (17:42)
[2021-02-23] MEDS: MELATONIN 5 MG TABLET PO SCH (20:13)
[2021-02-23] MEDS: DIVALPROEX SODIUM 500 MG ER TABLET PO SCH (20:13)
[2021-02-24] MEDS: LURASIDONE HCL 80 MG TABLET PO SCH (06:43)
[2021-02-24 08:00] VITALS: BP 117/79
[2021-02-24] MEDS: FLUoxetine HCL 20 MG CAPSULE PO SCH (08:12)
[2021-02-24] MEDS: NALTREXONE HCL 50 MG TABLET PO SCH (08:12)
[2021-02-24] MEDS: BusPIRone HCL 15 MG TABLET PO SCH (08:12)
[2021-02-24] MEDS: MULTIVITAMINS WITH MINERALS, THERAPEUTIC TABLET PO SCH (08:12)
[2021-02-24] MEDS: OMEGA-3/DHA/EPA/FISH OIL 1,000 MG CAPSULE PO SCH (08:12)
[2021-02-24] MEDS: BACITRACIN 28 GM OINTMENT TP SCH (08:15)
[2021-02-24] MEDS ORDERED: NALT50TA PO (11:31)
[2021-02-24] MEDS ORDERED: BUSP15 PO (11:31)
[2021-02-24] MEDS ORDERED: MELA5TAB3 PO (11:31)
[2021-02-24] MEDS ORDERED: DIVA-80 PO (11:31)
[2021-02-24] MEDS ORDERED: LURA80TA2 PO (11:31)
[2021-02-24] MEDS ORDERED: FLUO-191 PO (11:31)
== END 2021-02-24 16:00 | disposition home or self-care (01) | DRG 885 ==
LOC: EMS 09:12 → 3EC 15:36
PROVIDERS: ADMIT Psychiatry & Neurology Psychiatry
DX: F25.0 Schizoaffective disorder, bipolar type (principal); R45.851 Suicidal ideations; Z20.822 Contact with and (suspected) exposure to COVID-19; F41.9 Anxiety disorder, unspecified; G89.29 Other chronic pain; M54.9 Dorsalgia, unspecified; F12.10 Cannabis abuse, uncomplicated; J44.9 Chronic obstructive pulmonary disease, unspecified; F40.01 Agoraphobia with panic disorder; F17.210 Nicotine dependence, cigarettes, uncomplicated; Z79.899 Other long term (current) drug therapy
CPT/HCPCS: 80053; 80061; 80164; 81003; 83036; 84439; 84443; 85025; 86592; 87426; 90715; 99285; A9575; G0480; J1200; J1630; J2060